=== PATIENT | female | born 1995 ===

== ENCOUNTER → 2020-08-15 12:58 | Outpatient (CLI) | payer OTHER, SELFPAY ==
[2020-08-17 21:40] LABS: AFP, Serum 77.6 ng/mL (.); Inhibin A, Dimeric 108.89 pg/mL (.); Maternal Ethnicity Other (.); Maternal Weight 171 lbs (.); Number of Fetuses No (.); OSBR Risk 1 IN 2155 (.); Results Report (.); Test Results *Screen Negative* (.); hCG, MoM 0.47 (.); hCG, Serum 10712 mIU/mL (.)
== END ==
PROVIDERS: Referring Provider Family Medicine; Visit Provider Family Medicine
DX: Z34.90 Encounter for supervision of normal pregnancy, unspecified, unspecified trimester (principal)
CPT/HCPCS: 36415; 82105; 82677; 84702; 86336

== ENCOUNTER → 2020-08-27 12:11 | Outpatient (CLI) | payer OTHER, SELFPAY ==
--- NOTE | 2020-08-27 12:12 | DI.US.S_ITS ---
PROCEDURE: US OB >= 14 WEEKS FETUS INDICATIONS: 20 Week Anatomy US please OUTSIDE/PRIOR DATING DATA: Last menstrual period (LMP): 04/02/2020 . LMP-based estimated date of delivery (KLAUS): 01/07/2021 . First dating scan (date and location): 08/27/2020 . Estimated date of delivery (KLAUS) from first dating scan: 01/05/2021 . TECHNIQUE: Real-time scanning was performed of the fetus, with image documentation and biometric measurements. Endovaginal scanning: No COMPARISON: None. FINDINGS: General: A single living intrauterine gestation is present. Presentation: Breech. Placenta: Placental position is anterior , without previa. Amniotic fluid index: 3.8 cm, normal range is 5-24 cm. heart rate: 143 beats per minute. Maternal cervical canal: 3.8 cm long. Normal lower limit is 2.5 cm. biometrics: Biparietal diameter: 50 mm; 21 weeks 2 days Head circumference: 191 mm; 21 weeks 2 days Abdominal circumference: 158 mm; 20 weeks 6 days Femur length: 36 mm; 21 weeks 3 days Estimated gestational age from initial scan: not applicable. Composite gestational age from present scan: 21 weeks 2 days Estimated weight and percentile: 403 g, which is at the 53rd percentile for gestational age Measurement variability for biometric dating: +/- 7 days from 14 weeks to 15 weeks 6 days gestation, +/- 10 days from 16 weeks to 21 weeks 6 days gestation, +/- 2 weeks from 22 weeks to 27 weeks 6 days gestation, +/- 3 weeks for 28 weeks gestation or later. weight reference: 4500 g or EFW >90/95% is considered macrosomia or large for gestational age. EFW <10% is small for gestational age. EFW 5% or less is considered intra-uterine growth restriction. Anatomic survey: Neuro: Ventricles are non-dilated at less than 10 mm. Cisterna magna is normal at 3-11 mm. Cerebellum is normal in size and morphology. Nuchal skin fold: Normal at less than 6 mm between 14-21 weeks gestational age. Face: Nose and lips, facial profile are normal. Spine: No evidence for spina bifida. Heart: 4-chambered heart is present, with normal ventricular outflow tracts. Diaphragm: Diaphragm is intact. Stomach: Left-sided stomach is present. Kidneys: No hydronephrosis. Normal is less than 5 mm in 2nd trimester, less than 7 mm in 3rd trimester. Cord: 3-vessel cord has orthotopic insertion. Bladder: Normal in size. Extremities: All 4 extremities identified. IMPRESSION: 1. Single living intrauterine gestation. 2. Normal survey of anatomy. Dictated by: Paxton Fung M.D. on 08/27/2020 at 13:42 Approved by: Paxton Fung M.D. on 08/27/2020 at 14:07
== END ==
PROVIDERS: PCP Family Medicine; Referring Provider Family Medicine; Visit Provider Family Medicine
DX: Z34.82 Encounter for supervision of other normal pregnancy, second trimester (principal); Z3A.21 21 weeks gestation of pregnancy
CPT/HCPCS: 76811

== ENCOUNTER → 2020-10-17 14:44 | Outpatient (CLI) | payer OTHER, SELFPAY ==
[2020-10-17 16:12] LABS: Hematocrit 33.6 % (36-46); Hemoglobin 11.3 g/dL (12.0-16.0)
[2020-10-17 16:27] LABS: GTT (PREG) 1 Hour PP 50gm Dose 171 mg/dL (76-139)
== END ==
PROVIDERS: PCP Family Medicine; Referring Provider Family Medicine; Visit Provider Family Medicine
DX: Z34.82 Encounter for supervision of other normal pregnancy, second trimester (principal); Z3A.24 24 weeks gestation of pregnancy
CPT/HCPCS: 36415; 82950; 85014; 85018

== ENCOUNTER → 2020-10-24 10:04 | Outpatient (CLI) | payer OTHER, SELFPAY ==
[2020-10-24 12:15] LABS: Glucose Fasting Gestational 74 mg/dL (76-95)
[2020-10-24 12:18] LABS: Glucose 1 Hour Gest 157 mg/dL (76-180)
[2020-10-24 13:49] LABS: Glucose 2 Hour Gest 136 mg/dL (76-155)
[2020-10-24 15:22] LABS: Glucose Tol Interp,Gestational INTERPRETATION
[2020-10-24 15:29] LABS: Glucose 3 Hour Gest 98 mg/dL (76-140)
== END ==
PROVIDERS: PCP Family Medicine; Referring Provider Family Medicine; Visit Provider Family Medicine
DX: O99.810 Abnormal glucose complicating pregnancy (principal)
CPT/HCPCS: 36415; 82951; 82952

== ENCOUNTER → 2020-11-13 15:40 | Outpatient (CLI) | payer OTHER, SELFPAY ==
--- NOTE | 2020-11-14 13:41 | DIAB.MNT ---
Initial Medical Nutrition Therapy Assessment Name: Lisa Shanks Date: 11/14/20 Time: 340-455p Dx: Enc for supervision of normal Provider: Geovanyward Lisa presents for this virtual initial nutrition therapy visit via Vsee. She has consented to receive telehealth services. She is awaiting covid test results and is currently on quarantine at home. Lisa was referred for her elevated glucose screen of 171 mg/dL. Subsequently her OGTT was WNL. She would like to proceed with nutrition therapy to learn more about how to eat during and avoid diabetes. Reports FH of DM with father. Diet recall indicates high carb intake and limited vegetable and protein. Limited water intake as well. 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 Endorses emotional eating when is away. Reports variable experiences with therapy, but very open to trying a therapist again. States she has been trying to meal prep and eat at home more. Eats more fast food when is home. Diet Recall: 930-1030: 1-2c cereal, almond milk sweetened OR eggs with 1/2c beans and 2-3 tortillas 2-3p: 1c white rice with protein and 3-4 tortillas Snacks: mini bag taki chips, latoya crackers with PBJ x 2 6-7p: 1c white rice, broccoli, meat 2-3 tortillas 9p: same as afternoon or 5 saltine crackers Beverages: 0-32oz water daily, mini soda BID or pink lemonade, recently cut out OJ Anthropometrics: Ht: 5'1 Wt: 173# (last weight) Prepreg wt: 180#; lost weight down to 165# in beginning of due to nausea. Weight gain began at 6 months per her report. Physical Activity: walk dogs 10 min BID Self-Monitoring Blood Glucose: Not currently checking. May not need to check given OGTT. She seems weary about this as well. If provider would like to move forward with SMBG, RD will provide education. Diabetes Medications: None Pertinent Labs: 1 hr screen: 171 H OGTT: 74, 157, 136, 98 Past Medical History: (Last Updated 08/13/20 @ 16:49 by Flori Van Rooyen, RN) Anxiety and depression (~08/2007) On and off since age 11. 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 Discussed BHIP. Liver function abnormality (~03/2020) Liver enzymes were high : no symptoms. Did repeat labs for F/U. Obesity Skin change (~04/2020) Black dots to both feet to toes : around nails [place] teeth extracted (~08/2019) X 4; under [place] Nutrition Rx: Plate Method Nutrition Diagnosis: - Excessive CHO intake r/t nutrition knowledge deficit aeb diet recall and pt report - Physical inactivity r/t stage of change aeb pt report - inadequate fluid intake r/t nutrition knowledge deficit aeb diet recall and pt report Intervention: This participant was very receptive. Provided appropriate educational handouts. Discussed the following topics: Completed intake assessment. Discussed barriers to care. Brief explanation of GDM and recent lab values (screen and WNL OGTT) Risk factors for DM Plate Method, impact of macronutrients on blood sugar, meal timing, pairing macronutrients and spreading out carbohydrates and avoiding sugary beverages Ways to stay satiated with adding protein and fiber to diet Recs for fluid intake during Recs for protein intake during Brainstormed appropriate meal plan based on food preferences Role of physical activity during Created SMART goals for patient self-care and success. Provided a follow-up email with resources, goals set, and appropriate handouts (plate method and snack ideas) Goals: Contact work and [place] [employer] for therapy options Try special k protein cereal Drink 2 of your water bottles min to equal 64oz water daily Try homecooked meals we discussed Avoid sugary beverages Follow-up: [facility] follow-up in 2-3 weeks Monserrat Crowell RDN, GENE Certified Diabetes Care and Basic Sciences Professor P: [phone] Thank you for this referral
== END ==
PROVIDERS: PCP Family Medicine; Referring Provider Family Medicine; Visit Provider Family Medicine
DX: O26.899 Other specified pregnancy related conditions, unspecified trimester (principal); R73.9 Hyperglycemia, unspecified; Z71.3 Dietary counseling and surveillance
CPT/HCPCS: 97802

== ENCOUNTER → 2020-12-16 13:41 | Outpatient (CLI) | payer OTHER, SELFPAY ==
[2020-12-17 10:14] LABS: Strep Grp B PCR NEG for Grp B Strep
== END ==
PROVIDERS: PCP Family Medicine; Visit Provider Family Medicine
DX: Z34.03 Encounter for supervision of normal first pregnancy, third trimester (principal); Z3A.36 36 weeks gestation of pregnancy
CPT/HCPCS: 87653

== ENCOUNTER 2020-12-22 20:28 | Outpatient (CLI) | payer OTHER, SELFPAY ==
--- NOTE | 2020-12-22 21:14 | P.TNLD_ITS ---
Visit Information Visit Information Date of evaluation: 12/22/20 Primary OB Provider: Isidro Azevedo On-call OB Provider: Nohemi Triana Reason for Evaluation: Yes rule out labor Comments/Additional reasons for admission: 25 year at 37 weeks and 5 days with complaints of regular contractions. No leaking of fluid or bleeding. Good movement. Vital Signs Vital Signs: Temperature 36.7? blood pressure 111/73 heart rate 97 PFSH Medical History Anxiety and depression (~08/2007) Liver function abnormality (~03/2020) Obesity Skin change (~04/2020) Surgical History [place] teeth extracted (~08/2019) Family History Father Acute leukemia Smoker Abuse, drug or alcohol Mother Hypertension Hyperlipidemia Grandfather Murder Grandmother No problems noted. Grandfather Family disruption due to marital estrangement Grandmother No problems noted. Brother No problems noted. Sister No problems noted. 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 Irregular contractions on the monitor. Cervix was too high and posterior to reach per RN. Patient will be sent home and returned to the center if contractions picker tender helper, otherwise follow-up in clinic tomorrow.
== END 2020-12-22 21:33 | disposition home or self-care (01) ==
LOC: OB 12-24 07:46
PROVIDERS: PCP Family Medicine; Referring Provider Family Medicine; Visit Provider Family Medicine
DX: O47.1 False labor at or after 37 completed weeks of gestation (principal); Z3A.37 37 weeks gestation of pregnancy
CPT/HCPCS: 59025; 59050; G0378; G0379

== ENCOUNTER 2020-12-23 04:39 | Observation (INO) | payer OTHER, SELFPAY ==
--- NOTE | 2020-12-23 06:49 | PM.OBTRLD ---
Visit Information Visit Information Date of evaluation: 12/23/20 Primary OB Provider: Isidro Azevedo On-call OB Provider: Nohemi Triana Reason for Evaluation: Yes rule out labor Comments/Additional reasons for admission: 25-year-old at 37 weeks and 6 days gestation with complaints of contractions every 5 minutes that are getting stronger. Denies bleeding or leaking. Baby is moving. She was seen in the center last night and sent home. Vital Signs Vital Signs: Temperature 36.7? blood pressure 109/65 heart rate 93 PFSH Medical History Anxiety and depression (~08/2007) Liver function abnormality (~03/2020) Obesity Skin change (~04/2020) Surgical History [place] teeth extracted (~08/2019) Family History Father Acute leukemia Smoker Abuse, drug or alcohol Mother Hypertension Hyperlipidemia Grandfather Murder Grandmother No problems noted. Grandfather Family disruption due to marital estrangement Grandmother No problems noted. Brother No problems noted. Sister No problems noted. 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 special tor needs: No Smoking Status: Never smoker second hand exposure: No alcohol intake: former (pre- : social x 3/month) substance use type: does not use Evaluation Evaluation Baseline heart rate: 130 Variability: Moderate (11-25) monitor accelerations: Present Monitor Decelerations: Absent Contraction Frequency (minutes): 4 Uterine Contraction Intensity: Mild Category of Tracing: Reactive Cervical dilation (cm): 1 Cervical effacement (%): 60 station: -1 Diagnosis, Plan/Disposition Final Diagnosis (1) 37 weeks gestation of : Status: Acute Plan/Disposition Plan: She was brayden about every 4 minutes on arrival but contractions decreased. NST reactive. SVE /-1 per RN. Patient was offered pain medicine which she declined. She will discharge home and follow-up in clinic later today. OB Disposition: home
== END 2020-12-23 06:35 | disposition home or self-care (01) ==
LOC: LABOR 04:40
PROVIDERS: Admitting Provider Family Medicine; PCP Family Medicine; Referring Provider Family Medicine; Visit Provider Family Medicine
DX: O47.1 False labor at or after 37 completed weeks of gestation (principal); Z3A.37 37 weeks gestation of pregnancy
CPT/HCPCS: G0378; G0379

== ENCOUNTER 2020-12-24 03:41 | Inpatient (IN) | payer OTHER, SELFPAY ==
[2020-12-24] MEDS: OXYTOCIN 10 UNIT/ML VIAL IM (04:13)
--- NOTE | 2020-12-24 04:22 | P.HPOB_ITS ---
OB HPI Date/Time Date of admission: 12/24/20 Date Patient Seen: 12/24/20 History of Present Condition Chief complaint: MATERNITY KLAUS Calculator Estimated Delivery Date Method Current WG Current Estimate 01/07/21 LMP (Certain) 38w 0d Other Estimates 01/09/21 Manual 37w 5d Patient was told KLAUS is 01/09/21 : 1 Para: 0 care: good care Dating criteria OB: LMP confirmed by 1st trimester US Ultrasounds: none and normal mid trimester US Obstetrical complications: none Medical complications OB: none External History : 1 Para: 0 Preadmission Labs Last OB Lab Results: Hematocrit 33.6 % (36-46) L 10/17/20 14:54 10/17/20 Hemoglobin 11.3 g/dL (12.0-16.0) L 10/17/20 14:54 10/17/20 Glucose 1 Hour 171 mg/dL (76-139) H 10/17/20 14:54 10/17/20 Group B Streptococcus (PCR) Neg for grp b strep 12/16/20 13:41 12/16/20 Glucose Tolerance Testin hr (74 157 136 normal) -: Chlamydia screen: negative, Gonorrhea screen: negative and Urine: negative -: PAP smear: Normal Genetic Screens: Quad screen: Normal External Labs Blood type OB HPI: O (+) positive HCT: 11.3 -: Antibody screen: negative, HBsAG: negative, HIV: negative, RPR/VDLR: negative, Chlamydia screen: negative, Gonorrhea screen: negative, Cystic fibrosis screen: unknown, GBS status: negative and Urine: negative -: Rubella: unknown and Varicella: unknown HCAB: negative PAP: Normal Genetic Screens: Quad screen: Normal Glucose Tolerance Testin hr Narrative: Abnormal 1 hour normal 3 hour [facility] Medical History Anxiety and depression (~08/2007) Liver function abnormality (~03/2020) Obesity Skin change (~04/2020) Surgical History [place] teeth extracted (~08/2019) Family History Father Acute leukemia Smoker Abuse, drug or alcohol Mother Hypertension Hyperlipidemia Grandfather Murder Grandmother No problems noted. Grandfather Family disruption due to marital estrangement Grandmother No problems noted. Brother No problems noted. Sister No problems noted. 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 General: Alert no apparent distress. HEENT: Neck is supple or mucosa is moist Cardio: S1-S2 regular rate and rhythm. Respiratory: Lungs clear to auscultation. Abdomen: Gravid. Extremities: Normal deep tendon reflexes trace edema. Assessment and Plan Assessment and Plan Assessment and Plan narrative: 25-year-old G1 para 0 estimated due date of 01/07/2021 she is 38 weeks gestational age. Patient comes in active labor complete. I received a call from the center at 3:49 a.m. I arrived at the hospital at 3:59 a.m. and patient had spontaneously delivered. Patient had r outine care with routine labs elevated 1 hour glucose screen and normal 2 hour glucose screen. Patient has been brayden on and off since yesterday evening. Had evaluation in the office and she was 1 cm was similar to what she was yesterday morning. She said her contractions kind of went away throughout the day and then she started brayden again tonight about midnight and came i n at 4:00 a.m. in the morning. Patient had a nurse control delivery. Received IV Pitocin on arrival to the center at blood pressure was 110/68 pulse 85 temperature 96.5?. Orders were written for.
--- NOTE | 2020-12-24 04:30 | PM.OBPRVD ---
Labor & Delivery Delivery date: 12/24/20 Intrapartal Events: None Cervical ripening method: none Induction method: none Delivery monitor: external FHT Route of delivery: L&D Laceration Description: None Estimated blood loss (mL): 250 Narrative: 25-year-old female G1 para 0 comes in in active labor complete and pushing. She delivered approximately 10 minutes after arrival to the center. Her blood pressure on arrival was 110/68 pulse 83. She had a category 1 tracing. She pushed to deliver over intact perineum a male infant. Patient did not have any anesthesia. Patient delivered the infant in her amniotic sac. She delivered an intact placenta approximately 10 minutes after delivery of the she had a very small superficial laceration at the midline perineum will which was not repaired. She was given 10 units of IM Pitocin
[2020-12-24 04:41] VITALS: BP 125/72
[2020-12-24 08:28] LABS: COVID19 - ADMIT (NP swab/PCR) Negative (Negative)
[2020-12-24] MEDS: ACETAMINOPHEN 325 MG TABLET 650 MG PO (10:13)
[2020-12-24] MEDS: DOCUSATE 100 MG CAPSULE PO (10:14)
[2020-12-24] MEDS: IBUPROFEN 600 MG TABLET PO ×2 (10:14→18:42)
[2020-12-24] MEDS: LANOLIN OINT 7 GM 1 APPLIC TOP (10:14)
[2020-12-25 09:47] LABS: Hematocrit 35.2 % (36-46); Hemoglobin 11.9 g/dL (12.0-16.0)
--- NOTE | 2020-12-25 09:48 | P.DS_ITS ---
Discharge Providers Provider Date of admission: 12/24/20 03:41 Discharge Date: 12/25/20 Primary care physician: Isidro Azevedo MD Consults: 12/25/20 04:20 Consult to [facility] Routine Comment: Discharge provider: Isidro Azevedo MD Summary Hospital Course Date Patient Seen: 12/25/20 Diagnoses: Delivery of viable male vaginally Routine care Hospital Course: Patient was admitted the hospital in active labor arrived and delivered rapidly spontaneously vaginally viable male . Mom and baby did well through the delivery process. She had delivery of intact placenta with three-vessel cord. Day 1. Mom's vital signs were stable bleeding was stable she was tolerating her diet and ambulating well. Day 2. Hemoglobin hematocrit stable vital signs are stable blood pressure looks good no headache right upper quadrant pain dizziness. Breast-feeding was better after baby had procedure done for tongue-tie. Mom had no difficulty with pain c ontrol. Was using ibuprofen. Had some mild abdominal cramping. Had anticipated normal amount of vaginal bleeding. No significant lower extremity edema. Time Spent with Patient Time attestation: Total time spent providing and/or coordinating discharge services: Objective Labs Result Diagrams: 12/25/20 09:15 Exam Narrative Exam Narrative: General: Alert no apparent distress. Affect is appropriate. Sharon it is uncomfortable. HEENT: Neck is supple without lymphadenopathy pupils equal round and reactive. Cardio: S1-S2 regular rate and rhythm. Respiratory: Lungs clear to auscultation. Abdomen: Uterus firm. Incision clean dry and intact. Extremities: Normal deep tendon reflexes trace edema. Discharge Plan Discharge Plan Patient Disposition: Home Provider Discharge Comment: Discharge home follow up in [address] baldwin. Discharge orders & Medications Prescriptions: New docusate sodium 100 mg Capsule 100 mg PO DAILY Qty: 20 RF: 0 ibuprofen 600 mg Tablet 600 mg PO Q6HR PRN (Reason: Pain, Mild (1-3)) Qty: 30 RF: 0 Continued prenat.vits,michael,led-lsei-ysqco Tablet 1 tab PO DAILY RF: 0 Follow up/Referrals: Isirdo Azevedo MD [Primary Care Provider] - Visit Report/Discharge Packet Visit Report Forms: Patient Portal/API, Stroke Signs & Symptoms Discharge Data Primary Care Provider: Isidro Azevedo
[2020-12-25 10:01] VITALS: BP 125/72; PULSE 80; RESP 16; TEMP 36.3
== END 2020-12-25 11:35 | disposition home or self-care (01) | DRG 807 ==
PROVIDERS: Admitting Provider Family Medicine; PCP Family Medicine; Referring Provider Family Medicine; Visit Provider Family Medicine
DX: O60.14X0 Preterm labor third trimester with preterm delivery third trimester, not applicable or unspecified (principal); Z37.0 Single live birth; Z3A.38 38 weeks gestation of pregnancy; Z20.822 Contact with and (suspected) exposure to COVID-19
CPT/HCPCS: 36415; 59050; 59400; 85014; 85018; 87635; C9803; G0379; J2590